=== PATIENT | female | born 1955 | race Caucasian/White ===

== ENCOUNTER → 2017-12-28 | Outpatient (CLI) | payer BC ==
[~2017-12-28] MED LIST: ACYCLOVIR 800800 MG PO; ARTHRITIS MED; ASPIRIN EC325 M1 PO; CALCIUM CARBON500 M3 PO; COLACE 100 MG100 MG PO; FAMCICLOVIR500 MG PO; LIPITOR20 MG PO; LORTAB 5 MG/5001 TA1 PO; MEDROLDOSEPACK PO; MELOXICAM7.5 MG PO; MOM; MULTIVITAMINS; NEXIUM40 MG PO; NICOTINE1 EAC2 TD; NORCO 5-325 TA1 EACH PO; PERCOCET 5-3251 EACH; ZOLOFT100 MG PO
== END ==
LOC: M.RAD 10:19
DX: N63.20 Unspecified lump in the left breast, unspecified quadrant (principal); R92.8 Other abnormal and inconclusive findings on diagnostic imaging of breast

== ENCOUNTER → 2018-07-23 | Outpatient (CLI) | payer BC | LOC: M.RAD 09:40 | DX: Z12.31 Encounter for screening mammogram for malignant neoplasm of breast (principal) ==

== ENCOUNTER 2018-10-06 13:34 | Emergency (ER) | payer BC ==
[~2018-10-06] VITALS: Ht 167.6 cm; Wt 69.0 kg
[2018-10-06] MEDS ORDERED: PLAVIX 75 MG TA75 M1 PO (13:48)
[2018-10-06] MEDS ORDERED: LINZESS72 MCG PO (13:49)
[2018-10-06] MEDS ORDERED: RANITIDINE 150150 M1 PO (13:49)
[2018-10-06] MEDS ORDERED: BRINTELLIX10 MG PO (13:50)
[2018-10-06] MEDS ORDERED: XANAX 0.5 MG0.5 MG PO (13:51)
[2018-10-06 15:01] VITALS: BP 149/81
== END 2018-10-06 15:02 | disposition home or self-care (01) ==
LOC: M.ERS 13:34
DX: S20.211A Contusion of right front wall of thorax, initial encounter (principal); F17.210 Nicotine dependence, cigarettes, uncomplicated; K21.9 Gastro-esophageal reflux disease without esophagitis; F32.9 Major depressive disorder, single episode, unspecified; M19.90 Unspecified osteoarthritis, unspecified site; Z90.49 Acquired absence of other specified parts of digestive tract; Z86.73 Personal history of transient ischemic attack (TIA), and cerebral infarction without residual deficits; Z88.0 Allergy status to penicillin; W18.39XA Other fall on same level, initial encounter; Y92.89 Other specified places as the place of occurrence of the external cause; Y93.89 Activity, other specified; Y99.8 Other external cause status

== ENCOUNTER 2019-07-14 11:11 | Emergency (ER) | payer BC ==
[~2019-07-14] VITALS: Ht 162.6 cm; Wt 68.0 kg
[~2019-07-14 11:11] MED LIST changes: +BRINTELLIX10 MG PO; +LINZESS72 MCG PO; +PLAVIX 75 MG TA75 M1 PO; +RANITIDINE 150150 M1 PO; +XANAX 0.5 MG0.5 MG PO
[2019-07-14] MEDS ORDERED: NORCO 5-325 TA1 EAC1 PO (12:34)
[2019-07-14 12:53] VITALS: BP 132/85
== END 2019-07-14 12:54 | disposition home or self-care (01) ==
LOC: M.ERS 11:11
DX: S22.41XA Multiple fractures of ribs, right side, initial encounter for closed fracture (principal); M19.90 Unspecified osteoarthritis, unspecified site; K21.9 Gastro-esophageal reflux disease without esophagitis; Z86.73 Personal history of transient ischemic attack (TIA), and cerebral infarction without residual deficits; Z88.0 Allergy status to penicillin; Z90.49 Acquired absence of other specified parts of digestive tract; W18.39XA Other fall on same level, initial encounter; Y93.89 Activity, other specified; Y92.89 Other specified places as the place of occurrence of the external cause; Y99.8 Other external cause status

== ENCOUNTER → 2019-07-30 | Outpatient (CLI) | payer BC ==
[~2019-07-30] MED LIST changes: +NORCO 5-325 TA1 EAC1 PO
== END ==
LOC: M.RAD 07-24 10:00
DX: Z12.31 Encounter for screening mammogram for malignant neoplasm of breast (principal)

== ENCOUNTER 2020-04-02 17:40 | Emergency (ER) | payer BC ==
[~2020-04-02] VITALS: Ht 162.6 cm; Wt 63.5 kg
[2020-04-02 18:10] LABS: ABSOLUTE EOSINOPHILS 0.1 thou/uL (0.0-0.7); ABSOLUTE LYMPHOCYTES 2.7 thou/uL (0.8-5.3); ABSOLUTE MONOCYTES 0.4 thou/uL (0.0-1.2); ABSOLUTE NEUTROPHILS 4.7 thou/uL (1.6-8.1); BASOPHILS 0.4 %; EOSINOPHILS 0.9 %; HEMATOCRIT 41.8 % (37.0-47.0); HEMOGLOBIN 14.4 gm/dL (12.0-15.0); MCH 33.1 pg (26.0-34.0); MCHC 34.4 g/dL (28.0-37.0); MCV 96.3 fL (80.0-100.0); MONOCYTES 5.6 %; MPV 6.8 fl. (7.2-11.1); NUCLEATED RBCS 0 /100WBC; PLATELET COUNT* 344 thou/uL (150-400); POLYS 59.1 %; RBC 4.34 mil/uL (4.20-5.00); RDW-CV 12.6 % (10.5-14.5); WBC 7.9 thou/uL (4.0-11.0)
[2020-04-02 18:17] LABS: APTT 26.8 Seconds (25.0-31.3)
[2020-04-02 18:18] LABS: CALCIUM 9.6 mg/dL (8.5-10.1); CREATININE 0.9 mg/dL (0.6-1.3); POTASSIUM 3.8 mmol/L (3.5-5.1)
[2020-04-02 18:23] LABS: ALBUMIN 4.1 g/dL (3.4-5.0); TOTAL BILIRUBIN 0.3 mg/dL (<0.1-1.0)
[2020-04-02] MEDS ORDERED: HYDROXYZINE HCL25 M2 PO (19:50)
[2020-04-02 20:11] LABS: URINE BILIRUBIN NEGATIVE (Negative); URINE BLOOD TRACE (Negative); URINE CLARITY CLEAR; URINE COLOR YELLOW; URINE GLUCOSE-RANDOM NEGATIVE (Negative); URINE KETONES NEGATIVE (Negative); URINE LEUKOCYTES-REFLEX 1+ (Negative); URINE PROTEIN NEGATIVE (Negative); URINE SPECIFIC GRAVITY 1.015 (1.005-1.030); URINE UROBILINOGEN 0.2 E.U./dl (0.2-1.0)
[2020-04-02 20:18] LABS: URINE NITRITE-REFLEX POSITIVE (Negative)
[2020-04-02 20:19] LABS: BACTERIA-REFLEX >30 Many /HPF (None Seen); CASTS None Seen /LPF (None Seen); CRYSTALS None Seen /LPF (None Seen); SQUAMOUS 0-3 Few /LPF (0-3); URINE RBC 0-2 Rare /HPF (0-2)
[2020-04-02] MEDS ORDERED: KEFLEX500 M1 PO (20:26)
[2020-04-02 21:16] VITALS: BP 142/78
--- NOTE | 2020-04-03 10:49 | EKG ---
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1955 Requested By: Fabienne Long Order Number: [id number] MD: Lázaro Ludwig Measurements Intervals [place] Rate: 73 P: 70 RI: 176 QRS: 50 QRSD: 87 T: 42 QT: 373 QTc: 411 Interpretive Statements Sinus rhythm septal q waves noted Probable left atrial enlargement Borderline low voltage, extremity leads Compared to ECG 04/05/2017 15:00:06 No significant changes Electronically Signed On 04-03-2020 10:48:46 CDT by Lázaro Ludwig [email or web address] <ELECTRONICALLY SIGNED> By: Lázaro Ludwig MD, [facility] 04/03/20 1048 1748 1748 Lázaro Ludwig MD, [facility] /EPI
== END 2020-04-02 21:17 | disposition home or self-care (01) ==
LOC: M.ERS 17:40
PROVIDERS: Nurse Practitioner Family
DX: F41.9 Anxiety disorder, unspecified (principal); F17.210 Nicotine dependence, cigarettes, uncomplicated; M25.551 Pain in right hip; K21.9 Gastro-esophageal reflux disease without esophagitis; F32.9 Major depressive disorder, single episode, unspecified; M19.90 Unspecified osteoarthritis, unspecified site; E78.00 Pure hypercholesterolemia, unspecified; Z90.89 Acquired absence of other organs; Z79.899 Other long term (current) drug therapy; Z88.0 Allergy status to penicillin

== ENCOUNTER 2020-04-05 07:46 | Emergency (ER) | payer BC ==
[~2020-04-05] VITALS: Ht 162.6 cm; Wt 63.5 kg
[~2020-04-05 07:46] MED LIST changes: +HYDROXYZINE HCL25 M2 PO; +KEFLEX500 M1 PO
[2020-04-05 08:26] LABS: ABSOLUTE LYMPHOCYTES 1.4 thou/uL (0.8-5.3); ABSOLUTE MONOCYTES 0.3 thou/uL (0.0-1.2); BASOPHILS 0.3 %; EOSINOPHILS 0.3 %; HEMOGLOBIN 14.6 gm/dL (12.0-15.0); LYMPHOCYTES 20.8 %; MCH 33.3 pg (26.0-34.0); MCHC 34.7 g/dL (28.0-37.0); MPV 6.6 fl. (7.2-11.1); NUCLEATED RBCS 0 /100WBC; PLATELET COUNT* 352 thou/uL (150-400); POLYS 73.6 %; RBC 4.38 mil/uL (4.20-5.00); RDW-CV 12.7 % (10.5-14.5); WBC 6.8 thou/uL (4.0-11.0)
[2020-04-05 08:38] LABS: CALCIUM 9.3 mg/dL (8.5-10.1); CREATININE 0.8 mg/dL (0.6-1.3); POTASSIUM 3.5 mmol/L (3.5-5.1)
[2020-04-05 08:46] LABS: ALBUMIN 3.9 g/dL (3.4-5.0); MAGNESIUM 1.4 mg/dL (1.8-2.4); TOTAL BILIRUBIN 0.4 mg/dL (<0.1-1.0); TOTAL PROTEIN 6.8 g/dL (6.4-8.2)
[2020-04-05 10:49] LABS: CALCIUM 8.9 mg/dL (8.5-10.1); CREATININE 0.7 mg/dL (0.6-1.3); POTASSIUM 3.5 mmol/L (3.5-5.1)
[2020-04-05] MEDS ORDERED: ALPRAZOLAM 0.50.5 M1 PO (11:04)
[2020-04-05 11:24] VITALS: BP 164/82
--- NOTE | 2020-04-06 15:35 | EKG ---
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1955 Requested By: Bert Pacheco Order Number: [id number] MD: Vinny Sanchez Measurements Intervals [place] Rate: 89 P: 71 NE: 188 QRS: 44 QRSD: 87 T: 30 QT: 347 QTc: 423 Interpretive Statements Sinus rhythm Probable left atrial enlargement Low voltage, extremity leads Compared to ECG 04/02/2020 17:48:02 Q waves no longer present Electronically Signed On 04-06-2020 15:35:11 CDT by Vinny Sanchez [email or web address] <ELECTRONICALLY SIGNED> By: Vinny Sanchez MD, [facility] 04/06/20 1535 0752 0752 Vinny Sanchez MD, [facility] /EPI
== END 2020-04-05 11:15 | disposition home or self-care (01) ==
LOC: M.ERS 07:46
PROVIDERS: Emergency Medicine Emergency Medical Services
DX: F41.9 Anxiety disorder, unspecified (principal); R19.7 Diarrhea, unspecified; M19.90 Unspecified osteoarthritis, unspecified site; K21.9 Gastro-esophageal reflux disease without esophagitis; F17.210 Nicotine dependence, cigarettes, uncomplicated; Z88.0 Allergy status to penicillin; Z90.49 Acquired absence of other specified parts of digestive tract; Z86.73 Personal history of transient ischemic attack (TIA), and cerebral infarction without residual deficits

== ENCOUNTER 2020-06-03 19:25 | Inpatient (IN) | payer MEDICARE, OTHER ==
[~2020-06-03] VITALS: Ht 162.6 cm; Wt 67.1 kg
[~2020-06-03 19:25] MED LIST changes: +ALPRAZOLAM 0.50.5 M1 PO; -CALCIUM CARBON500 M3 PO; +CALCIUM CARBON500 MG PO; -MULTIVITAMINS; +MULTIVITAMINS PO
[2020-06-03 19:39] VITALS: BP 126/72
[2020-06-03 20:14] LABS: ABSOLUTE BASOPHILS 0.1 thou/uL (0.0-0.2); ABSOLUTE EOSINOPHILS 0.1 thou/uL (0.0-0.7); ABSOLUTE LYMPHOCYTES 2.4 thou/uL (0.8-5.3); ABSOLUTE MONOCYTES 0.7 thou/uL (0.0-1.2); ABSOLUTE NEUTROPHILS 5.9 thou/uL (1.6-8.1); BASOPHILS 0.6 %; HEMATOCRIT 37.5 % (37.0-47.0); HEMOGLOBIN 13.4 gm/dL (12.0-15.0); LYMPHOCYTES 26.4 %; MCH 33.2 pg (26.0-34.0); MCHC 35.9 g/dL (28.0-37.0); MCV 92.5 fL (80.0-100.0); MONOCYTES 7.5 %; MPV 6.8 fl. (7.2-11.1); NUCLEATED RBCS 0 /100WBC; PLATELET COUNT* 382 thou/uL (150-400); POLYS 64.5 %; RBC 4.05 mil/uL (4.20-5.00); RDW-CV 12.9 % (10.5-14.5); WBC 9.2 thou/uL (4.0-11.0)
[2020-06-03 20:27] LABS: CALCIUM 9.4 mg/dL (8.5-10.1); PROTIME 10.6 Seconds (9.20-11.50)
[2020-06-03 20:31] LABS: TOTAL BILIRUBIN 0.4 mg/dL (<0.1-1.0); TOTAL PROTEIN 6.7 g/dL (6.4-8.2)
[2020-06-04 00:05] LABS: URINE BILIRUBIN NEGATIVE (Negative); URINE BLOOD 1+ (Negative); URINE CLARITY CLEAR; URINE COLOR YELLOW; URINE GLUCOSE-RANDOM NEGATIVE (Negative); URINE KETONES NEGATIVE (Negative); URINE LEUKOCYTES-REFLEX TRACE (Negative); URINE NITRITE-REFLEX NEGATIVE (Negative); URINE PROTEIN NEGATIVE (Negative); URINE UROBILINOGEN 0.2 E.U./dl (0.2-1.0)
[2020-06-04 00:19] LABS: BACTERIA-REFLEX >30 Many /HPF (None Seen); CASTS None Seen /LPF (None Seen); CRYSTALS None Seen /LPF (None Seen); MUCUS 0-3 Light strn/LPF (None Seen); SQUAMOUS 0-3 Few /LPF (0-3); TRANSITIONAL EPITHEL CELL 0-3 Few /LPF (None Seen); URINE RBC 3-10 Few /HPF (0-2); URINE WBC-REFLEX 6-15 Few /HPF (0-5); WBC CLUMPS Few (None Seen)
[2020-06-04 01:10] VITALS: BP 170/86
[2020-06-04 01:30] VITALS: BP 167/84
[2020-06-04 08:15] VITALS: BP 152/86
[2020-06-04 08:20] LABS: HEMATOCRIT 38.1 % (37.0-47.0); HEMOGLOBIN 13.4 gm/dL (12.0-15.0); MCH 32.5 pg (26.0-34.0); MCHC 35.3 g/dL (28.0-37.0); MPV 6.9 fl. (7.2-11.1); RBC 4.14 mil/uL (4.20-5.00); RDW-CV 12.9 % (10.5-14.5)
[2020-06-04 08:24] LABS: CALCIUM 9.2 mg/dL (8.5-10.1); CREATININE 0.6 mg/dL (0.6-1.3); POTASSIUM 3.3 mmol/L (3.5-5.1)
[2020-06-04 12:00] VITALS: BP 140/83
--- NOTE | 2020-06-04 13:42 | CON ---
[address] [address] CONSULTATION Name: ROHIT VELAZQUEZ Room: [address] IN M.R.#: [id number] Admission: 06/04/20 Attend Phys: Allison Villafana Discharge: Date of : 59 Report #: [id number] THIS REPORT FOR: //name// cc: Erwin Ferguson Russell J. DO ~ THIS REPORT FOR: //name// CC: Erwin Gaston DICTATED BY: Violet Dhaliwal [facility] DATE OF SERVICE: 06/04/2020 Please note at the time of this dictation, the patient was seen and physically examined by myself. REASON FOR CONSULTATION: Rectal bleeding. HISTORY OF PRESENT ILLNESS: This is a pleasant 64-year-old female who was last seen by us in 2017 when she underwent EGD and colonoscopy. EGD for dysphagia in which she underwent dilatation with a 34 Sami, noted a small hiatal hernia and she had a torturous esophagus. Colonoscopy revealed a hyperplastic polyp in the sigmoid colon along with diverticular disease and external hemorrhoids. The patient states she has had ongoing issues with constipation. She has been taking Linzess since that time and has been working fairly well. She states she cannot remember the dosage; however, she usually was going about every other day. However, this week, she has noted that she has had increased constipation and has not gone for 4 days and then when she did go yesterday, it was diarrhea with a lot of bright red blood that prompted her to come in because that was the first time that she has noted any bright red blood with a bowel movement. The patient states she also experienced a little bit of lower abdominal discomfort with this and that was much more intense at the time of admission then it is currently, it is just very minimal. She also admits that she has been having increased difficulty swallowing more to solids and pills, which has been getting progressively worse over the last several months. The patient does take a blood thinner, Plavix, due to her history of previous strokes and her last dose of that was yesterday a.m. ALLERGIES: PENICILLIN. MEDICATIONS FROM HOME: Linzess, Lipitor, multivitamin, calcium carbonate, Percocet, Plavix, and Trintellix. PAST MEDICAL HISTORY: Recurrent shingles; arthritis; GERD; depression; anxiety, [place] [address] CONSULTATION Name: ROHIT VELAZQUEZ Mitch Room: [address] IN [facility]#: [id number] Admission: 06/04/20 Attend Phys: Allison Villafana Discharge: Date of : 59 Report #: [id number] history of strokes, last one in 2016; and bilateral cataracts. PAST SURGICAL HISTORY: Laparoscopic surgery and appendectomy. FAMILY HISTORY: Mother diagnosed with anal cancer in her 80s. SOCIAL HISTORY: Does smoke tobacco. Denies any alcohol or illegal drug use. REVIEW OF SYSTEMS: Twelve-point review of systems is essentially negative except what is mentioned in the HPI. PHYSICAL EXAMINATION: VITAL SIGNS: Temperature 36.1, pulse 68, respirations 18, and blood pressure 167/84. HEART: Regular rate and rhythm. LUNGS: Diminished, but clear. ABDOMEN: Soft, positive bowel sounds in all 4 quadrants with just very minimal lower abdominal discomfort noted. LABORATORY DATA: Hemoglobin is 13.9, white count is 9.2, and platelets are 382. GFR is 56. Her LFTs are completely normal. PT 10.6 and INR is 1. Her sodium is low at 120 and potassium was 3. CT scan showed a 2.2 x 2.8 cm rectal mass with mesorectal soft tissue enhancement. There were 4 left-sided mesorectal soft tissue nodules measuring the greatest up to 1.9 cm in size. IMPRESSION: 1. Rectal bleeding. 2. Abnormal CT mass in the rectum and mesorectal soft tissue nodules. 3. Dysphagia. 4. Lower abdominal pain. 5. Anticoagulant therapy. 6. Hyponatremia. 7. Family history of anal cancer, mother in her 80s. PLAN: 1. EGD and colonoscopy tomorrow with Dr. Marquez. 2. Clear liquids today. 3. Continue to hold her Plavix. 4. Restart her Protonix 40 mg daily. 5. Further recommendations to be made once the procedure has been performed. 6. We will allow the hospitalist to address her hyponatremia and hyperkalemia prior to tomorrow's procedure. Thank you for allowing us to participate in this patient's care. Please do not hesitate to call with any questions in regard [place] [address] CONSULTATION Name: ROHIT VELAZQUEZ Room: [address] IN .R.#: [id number] Admission: 06/04/20 Attend Phys: Allison Villafana Discharge: Date of : 59 Report #: [id number] Agree with above assessment and plan by Violet Dhaliwal <ELECTRONICALLY SIGNED> By: Imer Car MD 06/04/20 1342 0809 0837Imer Car MD /nt
[2020-06-04 16:54] VITALS: BP 159/85
[2020-06-04 19:40] VITALS: BP 150/76
[2020-06-05] VITALS: BP 188/78
[2020-06-05 04:00] VITALS: BP 166/79
[2020-06-05 08:00] VITALS: BP 147/71
[2020-06-05 15:52] VITALS: BP 188/86
[2020-06-05 19:50] VITALS: BP 174/78
[2020-06-06 00:18] VITALS: BP 174/70
[2020-06-06 04:00] VITALS: BP 173/80
[2020-06-06 04:36] LABS: ABSOLUTE BASOPHILS 0.1 thou/uL (0.0-0.2); ABSOLUTE EOSINOPHILS 0.1 thou/uL (0.0-0.7); ABSOLUTE LYMPHOCYTES 2.9 thou/uL (0.8-5.3); ABSOLUTE MONOCYTES 0.6 thou/uL (0.0-1.2); ABSOLUTE NEUTROPHILS 4.2 thou/uL (1.6-8.1); BASOPHILS 0.9 %; EOSINOPHILS 1.4 %; HEMOGLOBIN 12.7 gm/dL (12.0-15.0); MCHC 35.3 g/dL (28.0-37.0); MCV 93.3 fL (80.0-100.0); MONOCYTES 8.1 %; MPV 6.8 fl. (7.2-11.1); NUCLEATED RBCS 0 /100WBC; PLATELET COUNT* 382 thou/uL (150-400); POLYS 52.6 %; RBC 3.86 mil/uL (4.20-5.00); RDW-CV 12.8 % (10.5-14.5); WBC 7.9 thou/uL (4.0-11.0)
[2020-06-06 04:59] LABS: CALCIUM 8.7 mg/dL (8.5-10.1); CREATININE 0.5 mg/dL (0.6-1.3); TOTAL BILIRUBIN 0.5 mg/dL (<0.1-1.0); TOTAL PROTEIN 5.7 g/dL (6.4-8.2)
[2020-06-06 05:11] LABS: POTASSIUM 2.4 mmol/L (3.5-5.1)
[2020-06-06 08:00] VITALS: BP 163/74
[2020-06-06] MEDS ORDERED: PERCOCET 5-3251 EACH PO ×2 (10:45→10:49)
[2020-06-06] MEDS ORDERED: ALPRAZOLAM 0.50.5 M1 PO (10:45)
[2020-06-06 13:55] VITALS: BP 173/72
[2020-06-06 14:18] VITALS: BP 173/72
--- NOTE | 2020-06-10 15:07 | PATH ---
[address] [address] PATHOLOGY RPT PROCEDURE Name: ROHIT VELAZQUEZ Mitch Room: [address] IN M.R.#: [id number] Admission: 06/04/20 Date of : 59 Discharge: 06/06/20 Report #: [id number] Path Case #: [id number] [facility] Accession Number: [id number] . 01 Material submitted: . PART A: stomach - GASTRIC BIOPSY PART B: rectosigmoid junction - RECTAL SIGMOID ABNORMAL MUCOSA PART C: rectum - DISTAL RECTAL POLYP. Modifiers: distal . 01 Clinical history: . RECTAL BLEED, CELIAC, RENAL AND MESENTARY ARTERY STENOS . 02 Diagnosis: A. Gastric: - Mild non-specific chronic gastritis, negative for Helicobacter pylori organisms and dysplasia. . B. Rectal sigmoid at normal mucosa: - Mild active colitis with suggestion of ischemic features, negative for granulomas, viral inclusions and dysplasia/adenomatous change. See comment. . C. 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 SEE COMMENT. [facility] 06/10/2020 1440 Local . 02 Comment: The rectal sigmoid "abnormal mucosa" biopsy (B) shows benign colonic mucosa with edema, fresh hemorrhage and minimal active inflammation evidenced by neutrophils generally in the lamina propria and there is a suggestive of several hyaline microthrombi in the superficial lamina propria as well. There is no significant crypt distortion or basal lymphoplasmacytosis to elevate a suspicion of inflammatory bowel disease. The distal rectal polyp (C) shows prominent nests of high grade malignant cells present in well circumscribed aggregates within the mucosa and also extending to involve submucosal tissues and intermingled amidst non-dysplastic colonic crypts. A panel of properly controlled immunohistochemical studies performed on C1 shows the following results: . P63 POSITIVE CK7 NEGATIVE CK20 NEGATIVE Estrogen receptor NEGATIVE PAX8 NEGATIVE CDX2 NEGATIVE GATA3 NEGATIVE P16 [place] [address] PATHOLOGY RPT PROCEDURE Name: ROHIT VELAZQUEZ Mitch Room: [address] IN [facility]#: [id number] Admission: 06/04/20 Date of : 59 Discharge: 06/06/20 Report #: [id number] Path Case #: [id number] . These findings support a p16 positive high-grade epithelial malignancy and a colonic primary is very unlikely. Per discussion of the preliminary findings with Dr. Marquez at approximately 1515 on 06/09/2020, he notes this "distal rectal polyp" was at least 4 cm away from the anal tissue/dentate line and that it was suspicious for a non-colonic neoplasm. The immunohistochemical findings show some conflicting results; however, suggest a SURGICAL RESIDENT (cervical) or urinary primary and an anal metastasis cannot be entirely excluded. . Reviewed with Dr. Cheryl Mayers, who agrees with the diagnosis. (TSERING/db/moisés; 06/10/2020) . 02 Electronically signed: . Fran Pineda MD, Pathologist NPI- [id number] . 01 Gross description: . A. Received in formalin labeled "Shun, Rohit, gastric" is a 0.5 x 0.3 x 0.1 cm aggregate of balderas-brown soft tissue fragments. The specimen is submitted entirely in A1. . B. Received in formalin labeled "Shun, Rohit, rectal sigmoid" is a 0.4 x 0.4 x 0.1 cm aggregate of balderas-brown soft tissue fragments. The specimen is submitted entirely in B1. . C. Received in formalin labeled "Shun, Rohit, distal rectal polyp" is a 0.9 x 0.7 x 0.1 cm aggregate of balderas-brown soft tissue fragments. The specimen is submitted entirely in C1. ([facility]; 06/05/2020) [facility] 06/05/[address] [place] [address] . 02 Pathologist provided ICD-10: K29.50, K52.9, C20 . 02 CPT . 003719, 419883, 429664, U94449, S66707 Specimen Comment: A courtesy copy of this report has been sent to [phone] Specimen Comment: [phone], Specimen Comment: Report sent to Specimen Comment: Report sent to , , / Performed at: [address] [facility] [address], [place], [place] [id number] MD Erwin Hurd MD Phone: [phone] Performed at: [address] [facility], [place], [place] [id number] MD Fran Pineda MD Phone: [phone]
== END 2020-06-06 17:15 | disposition home or self-care (01) | DRG 378 ==
LOC: M.ERS 19:25 → M.TBA-ER 06-04 00:01 → M.2W 06-04 00:01
PROVIDERS: Emergency Medicine; ADMIT Internal Medicine; ATTEND Internal Medicine
PROC: 0DBP8ZX Excision of Rectum, Via Natural or Artificial Opening Endoscopic, Diagnostic (ICD-10-PCS; principal; 2020-06-05)
PROC: 0DB68ZX Excision of Stomach, Via Natural or Artificial Opening Endoscopic, Diagnostic (ICD-10-PCS; principal; 2020-06-05)
PROC: 0DBN8ZX Excision of Sigmoid Colon, Via Natural or Artificial Opening Endoscopic, Diagnostic (ICD-10-PCS; principal; 2020-06-05)
DX: K92.2 Gastrointestinal hemorrhage, unspecified (principal); E87.1 Hypo-osmolality and hyponatremia; K64.8 Other hemorrhoids; M19.90 Unspecified osteoarthritis, unspecified site; K21.9 Gastro-esophageal reflux disease without esophagitis; F32.9 Major depressive disorder, single episode, unspecified; F41.9 Anxiety disorder, unspecified; R13.10 Dysphagia, unspecified; F17.210 Nicotine dependence, cigarettes, uncomplicated; B02.9 Zoster without complications; K44.9 Diaphragmatic hernia without obstruction or gangrene; Z20.828 Contact with and (suspected) exposure to other viral communicable diseases; K64.4 Residual hemorrhoidal skin tags; Z90.49 Acquired absence of other specified parts of digestive tract; Z86.73 Personal history of transient ischemic attack (TIA), and cerebral infarction without residual deficits; Z98.42 Cataract extraction status, left eye; Z98.41 Cataract extraction status, right eye; Z88.0 Allergy status to penicillin; Z80.8 Family history of malignant neoplasm of other organs or systems; Z79.01 Long term (current) use of anticoagulants; Z79.899 Other long term (current) drug therapy

== ENCOUNTER 2020-06-27 09:59 | Inpatient (IN) | payer MEDICARE, OTHER ==
[~2020-06-27] VITALS: Ht 162.6 cm; Wt 62.2 kg
[~2020-06-27 09:59] MED LIST changes: +PERCOCET 5-3251 EACH PO
[2020-06-27 10:10] VITALS: BP 195/101
[2020-06-27] MEDS ORDERED: LINZESS72 MCG PO (10:14)
[2020-06-27] MEDS ORDERED: OMEPRAZOLE 20 M20 M1 PO (10:14)
[2020-06-27] MEDS ORDERED: FLEXERIL PO (10:14)
[2020-06-27] MEDS ORDERED: VENTOLIN HFA 1818 GM INH (10:14)
[2020-06-27] MEDS ORDERED: PLAVIX 75 MG TA75 MG PO (10:14)
[2020-06-27] MEDS ORDERED: NUEDEXTA 20-101 EACH PO (10:14)
[2020-06-27] MEDS ORDERED: AMITRIPTYLINE100 MG PO (10:15)
[2020-06-27 10:27] LABS: ABSOLUTE BASOPHILS 0.1 thou/uL (0.0-0.2); ABSOLUTE LYMPHOCYTES 1.8 thou/uL (0.8-5.3); ABSOLUTE MONOCYTES 0.4 thou/uL (0.0-1.2); ABSOLUTE NEUTROPHILS 4.4 thou/uL (1.6-8.1); BASOPHILS 0.8 %; EOSINOPHILS 0.6 %; HEMATOCRIT 43.1 % (37.0-47.0); HEMOGLOBIN 14.9 gm/dL (12.0-15.0); LYMPHOCYTES 26.4 %; MCH 32.7 pg (26.0-34.0); MCHC 34.7 g/dL (28.0-37.0); MCV 94.2 fL (80.0-100.0); MONOCYTES 6.4 %; MPV 6.3 fl. (7.2-11.1); NUCLEATED RBCS 0 /100WBC; PLATELET COUNT* 452 thou/uL (150-400); POLYS 65.8 %; RBC 4.57 mil/uL (4.20-5.00); RDW-CV 13.5 % (10.5-14.5); WBC 6.7 thou/uL (4.0-11.0)
[2020-06-27 10:35] LABS: CALCIUM 10.2 mg/dL (8.5-10.1); CREATININE 1.4 mg/dL (0.6-1.3); POTASSIUM 3.3 mmol/L (3.5-5.1)
[2020-06-27 10:39] LABS: ALBUMIN 4.2 g/dL (3.4-5.0); TOTAL BILIRUBIN 0.5 mg/dL (<0.1-1.0); TOTAL PROTEIN 7.1 g/dL (6.4-8.2)
[2020-06-27 13:58] VITALS: BP 161/87
[2020-06-27 14:30] VITALS: BP 183/88
[2020-06-27] MEDS ORDERED: REQUIP 1 MG TABL1 M1 PO (15:41)
[2020-06-27 16:48] LABS: CHOLESTEROL 163 mg/dL (<200); HDL CHOLESTEROL 85 mg/dL (>40); LDL CHOLESTEROL 61 mg/dL (<100); TC:HDL 1.9 Ratio (Not establshd); TRIGLYCERIDE 85 mg/dL (<150); VLDL 17 mg/dL (<40)
[2020-06-27 16:49] LABS: SERUM ASSESSMENT CLEAR
[2020-06-27 19:26] VITALS: BP 168/78
[2020-06-27 20:00] VITALS: BP 162/78
[2020-06-28 00:15] VITALS: BP 153/82
[2020-06-28 04:09] VITALS: BP 162/87
[2020-06-28 05:09] LABS: URINE BILIRUBIN NEGATIVE (Negative); URINE BLOOD TRACE (Negative); URINE CLARITY CLEAR; URINE COLOR YELLOW; URINE GLUCOSE-RANDOM NEGATIVE (Negative); URINE KETONES NEGATIVE (Negative); URINE LEUKOCYTES-REFLEX TRACE (Negative); URINE NITRITE-REFLEX POSITIVE (Negative); URINE PROTEIN NEGATIVE (Negative); URINE UROBILINOGEN 0.2 E.U./dl (0.2-1.0)
[2020-06-28 05:34] LABS: SQUAMOUS 0-3 Few /LPF (0-3); WBC CASTS 0-3 /LPF
[2020-06-28 05:35] LABS: URINE WBC-REFLEX >25 Many /HPF (0-5); WBC CLUMPS Moderate (None Seen)
[2020-06-28 05:36] LABS: BACTERIA-REFLEX >30 Many /HPF (None Seen); CRYSTALS None Seen /LPF (None Seen); URINE RBC None Seen /HPF (0-2)
[2020-06-28 08:00] VITALS: BP 159/77
[2020-06-28 12:00] VITALS: BP 181/94
--- NOTE | 2020-06-28 12:59 | EKG ---
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: [facility] : 1955 Requested By: Reese Aviles Order Number: [id number] MD: Corbin Lester Measurements Intervals [place] Rate: 81 P: 63 CO: 182 QRS: 22 QRSD: 94 T: 12 QT: 367 QTc: 426 Interpretive Statements Sinus rhythm Possible left atrial enlargement Borderline low voltage, extremity leads Compared to ECG 04/05/2020 07:52:34 No significant changes Electronically Signed On 06-28-2020 12:59:09 CDT by Corbin Lester [email or web address] <ELECTRONICALLY SIGNED> By: Corbin Lester MD, [facility]ACC 06/28/20 1259 1027 1027 Corbin Lester MD, [facility] /EPI
[2020-06-28 13:03] LABS: ABSOLUTE EOSINOPHILS 0.1 thou/uL (0.0-0.7); ABSOLUTE LYMPHOCYTES 2.1 thou/uL (0.8-5.3); ABSOLUTE MONOCYTES 0.8 thou/uL (0.0-1.2); ABSOLUTE NEUTROPHILS 7.1 thou/uL (1.6-8.1); BASOPHILS 0.5 %; EOSINOPHILS 1.1 %; HEMATOCRIT 37.8 % (37.0-47.0); MCH 32.5 pg (26.0-34.0); MCHC 34.2 g/dL (28.0-37.0); MONOCYTES 7.5 %; MPV 6.4 fl. (7.2-11.1); NUCLEATED RBCS 0 /100WBC; POLYS 69.9 %; RBC 3.98 mil/uL (4.20-5.00); RDW-CV 13.7 % (10.5-14.5); WBC 10.1 thou/uL (4.0-11.0)
[2020-06-28 13:05] LABS: PLATELET COUNT* 371 thou/uL (150-400)
[2020-06-28 13:06] LABS: HEMOGLOBIN 12.9 gm/dL (12.0-15.0)
[2020-06-28 13:15] LABS: ALBUMIN 3.3 g/dL (3.4-5.0); CALCIUM 9.2 mg/dL (8.5-10.1); CREATININE 0.7 mg/dL (0.6-1.3); POTASSIUM 3.2 mmol/L (3.5-5.1); TOTAL BILIRUBIN 0.4 mg/dL (<0.1-1.0); TOTAL PROTEIN 5.7 g/dL (6.4-8.2)
[2020-06-28 16:55] VITALS: BP 153/70
[2020-06-28 20:00] VITALS: BP 164/84
[2020-06-29] VITALS (7 sets, daily range): BP systolic 149–165; BP diastolic 71–85
--- NOTE | 2020-06-29 15:35 | CON ---
[address] [address] CONSULTATION Name: ROHIT VELAZQUEZ Room: [address] IN .[place].#: [id number] Admission: 06/27/20 Attend Phys: [place] Discharge: Date of : 59 Report #: [id number] THIS REPORT FOR: //name// cc: Erwin Ferguson Russell J. DO ~ THIS REPORT FOR: //name// CC: Osvaldo Ferguson DATE OF SERVICE: 06/28/2020 HISTORY OF PRESENT ILLNESS: This is a pleasant 64-year-old female with past medical history significant for hyperlipidemia, CVA x 3, and recently diagnosed anal cancer who is presenting for evaluation of abdominal pain. The patient reports that she began having abdominal pain yesterday. The pain is located in the epigastric region associated with nausea and vomiting. The patient reports the pain is worse with food, relieved by bowel rest, pain medication. It is sharp, localized, nonradiating. PAST MEDICAL HISTORY: The patient was recently diagnosed with basaloid anal cancer, has history of hypertension, hyperlipidemia, and stroke. PAST SURGICAL HISTORY: Appendectomy. SOCIAL HISTORY: The patient is a current every day smoker. Denies alcohol or recreational drug use. FAMILY HISTORY: No family history of colon cancer. REVIEW OF SYSTEMS: Comprehensive 10-point review of systems is negative except for what is mentioned in the HPI. PHYSICAL EXAMINATION: VITAL SIGNS: Temperature 36.6, pulse rate 90, respirations 18, blood pressure 159/77, and pulse ox 97%. GENERAL: The patient is alert, awake, and oriented x 3. HEENT: Pupils are equal, round, and reactive to light and accommodation. Mucous membranes are moist. There is no congestion. LUNGS: Clear to auscultation bilaterally. CARDIOVASCULAR: Rate and rhythm regular. S1, S2 present. ABDOMEN: Soft. There is no distention, guarding, or rigidity. EXTREMITIES: Warm, well perfused. There is no edema. Mild tenderness to palpation in the epigastric abdominal region noted. LABORATORY DATA: Hemoglobin 14.9, hematocrit 43.1, platelet count 452, [place] [address] CONSULTATION Name: MARCUSROHIT Mitch Room: [address] IN [facility]#: [id number] Admission: 06/27/20 Attend Phys: [place] Discharge: Date of : 59 Report #: [id number] count 6.7. Sodium 130, potassium 3.3, chloride 97, bicarbonate 25, BUN 21, creatinine 1.4, total bilirubin 0.5, AST 19, ALT 30, alkaline phosphatase 91, and lipase 1941. IMAGING STUDIES: CT abdomen and pelvis demonstrates previously noted rectal adenocarcinoma and is otherwise unremarkable. ASSESSMENT AND PLAN: Pleasant 64-year-old female with history of recently diagnosed rectal adenocarcinoma. The patient underwent a flexible sigmoidoscopy and lower endoscopic ultrasound for staging for her rectal adenocarcinoma. She did not undergo an EGD. The episode of mild pancreatitis that she is currently suffering from is independent of her recent diagnosis of rectal adenocarcinoma. I would recommend conservative therapy at this time including IV fluids, pain medications. The patient appears to have some nausea and vomiting in response to regular diet. I would switch her back to a full liquid diet. Advance diet as tolerated. Thank you for this consultation. <ELECTRONICALLY SIGNED> By: Imer Car MD 06/29/20 1535 1110 1330Imer Car MD /nt
[2020-06-29 18:35] LABS: MAGNESIUM 2.8 mg/dL (1.8-2.4); POTASSIUM 4.4 mmol/L (3.5-5.1)
[2020-06-30 04:00] VITALS: BP 155/84
[2020-06-30 05:38] LABS: ABSOLUTE EOSINOPHILS 0.2 thou/uL (0.0-0.7); ABSOLUTE LYMPHOCYTES 1.4 thou/uL (0.8-5.3); ABSOLUTE MONOCYTES 0.5 thou/uL (0.0-1.2); ABSOLUTE NEUTROPHILS 5.4 thou/uL (1.6-8.1); BASOPHILS 0.5 %; HEMATOCRIT 34.6 % (37.0-47.0); LYMPHOCYTES 18.8 %; MCH 32.7 pg (26.0-34.0); MCHC 34.6 g/dL (28.0-37.0); MCV 94.4 fL (80.0-100.0); MPV 6.9 fl. (7.2-11.1); NUCLEATED RBCS 0 /100WBC; PLATELET COUNT* 321 thou/uL (150-400); POLYS 71.7 %; RBC 3.67 mil/uL (4.20-5.00); RDW-CV 13.5 % (10.5-14.5); WBC 7.5 thou/uL (4.0-11.0)
[2020-06-30 06:02] LABS: ALBUMIN 3.3 g/dL (3.4-5.0); CALCIUM 8.7 mg/dL (8.5-10.1); CREATININE 0.7 mg/dL (0.6-1.3); TOTAL BILIRUBIN 0.6 mg/dL (<0.1-1.0)
[2020-06-30 06:19] LABS: POTASSIUM 3.4 mmol/L (3.5-5.1)
[2020-06-30 07:30] VITALS: BP 192/94
[2020-06-30 10:27] VITALS: BP 192/94
[2020-06-30 15:48] VITALS: BP 192/94
== END 2020-06-30 16:28 | disposition home health service (06) | DRG 438 ==
LOC: M.ERS 09:59 → M.2W 12:16 → M.TBA-ER 12:16 → M.2W 14:19
PROVIDERS: Family Medicine; Internal Medicine; ADMIT Internal Medicine; ATTEND Internal Medicine
DX: K85.90 Acute pancreatitis without necrosis or infection, unspecified (principal); N17.0 Acute kidney failure with tubular necrosis; N39.0 Urinary tract infection, site not specified; C20 Malignant neoplasm of rectum; C19 Malignant neoplasm of rectosigmoid junction; I10 Essential (primary) hypertension; K21.9 Gastro-esophageal reflux disease without esophagitis; E78.5 Hyperlipidemia, unspecified; F32.9 Major depressive disorder, single episode, unspecified; M19.90 Unspecified osteoarthritis, unspecified site; F41.9 Anxiety disorder, unspecified; K44.9 Diaphragmatic hernia without obstruction or gangrene; E86.0 Dehydration; F17.210 Nicotine dependence, cigarettes, uncomplicated; Z20.828 Contact with and (suspected) exposure to other viral communicable diseases; Z90.49 Acquired absence of other specified parts of digestive tract; Z88.0 Allergy status to penicillin; Z86.73 Personal history of transient ischemic attack (TIA), and cerebral infarction without residual deficits; Z98.42 Cataract extraction status, left eye; Z98.41 Cataract extraction status, right eye; Z79.899 Other long term (current) drug therapy